=== PATIENT | female | born 1960 | race Native Hawaiian/Other Pacific Islander ===

== ENCOUNTER 2018-03-17 21:59 | Inpatient (IN) | payer BC ==
[2018-03-17 22:19] VITALS: BMI 26.9
--- NOTE | 2018-03-17 22:48 | ED PDOC ---
Arrival/HPI - General Chief Complaint: Dizziness/Lightheaded Time Seen by Provider: 03/17/18 22:15 Historian: Patient - History of Present Illness Narrative History of Present Illness (Text): 03/17/18 22:49 A 57 year old female, with no significant past medical history, presents to the emergency department complaining of dizziness. Patient describes dizziness as a room-spinning sensation, feels like she is "on a boat." Also, patient mentions she currently has an ear infection, which she was prescribed a [id number]-[id number] of Cipro, which she is nearly done with. Patient notes also vomiting a few times earlier today, howeve denies any syncope, palpitations, chest pain, dyspnea on exertion, any other neuro symptoms, or any other complaints at this time. No PMD Past Medical History - Provider Review Nursing Documentation Reviewed: Yes - Infectious Disease Hx of Infectious Diseases: None - Reproductive Menopause: No Family/Social History - Physician Review Nursing Documentation Reviewed: Yes Family/Social History: No Known Family HX Allergies/Home Meds Allergies/Adverse Reactions: Allergies Penicillins Allergy (Verified 03/17/18 22:43) RASH Review of Systems - Physician Review All systems were reviewed & negative as marked: Yes - Review of Systems Cardiovascular: absent: Chest Pain, Palpitations, SHERIFF, Syncope Gastrointestinal: Vomiting (few times today) Neurological: Dizziness (room-spinning sensation). absent: Headache, Focal Weakness, Gait Changes, Speech Changes, Facial Droop, Disequilibrium Physical Exam Vital Signs Reviewed: Yes Vital Signs Temp Pulse Resp BP Pulse Ox 03/17/18 22:31 97.5 F L 64 16 175/77 H 96 03/17/18 22:19 97.5 F L 65 20 208/83 H 99 Temperature: Afebrile Blood Pressure: Hypertensive Pulse: Regular Respiratory Rate: Normal Appearance: Positive for: Well-Appearing, Non-Toxic, Comfortable Pain Distress: None Mental Status: Positive for: Alert and Oriented X 3 - Systems Exam Head: Present: Atraumatic, Normocephalic Pupils: Present: PERRL Extroacular Muscles: Present: EOMI, Other (horizontal nystagmus) Conjunctiva: Present: Normal Ears: Present: NORMAL TM (clear bilaterally) Mouth: Present: Moist Mucous Membranes Neck: Present: Normal Range of Motion Respiratory/Chest: Present: Clear to Auscultation, Good Air Exchange. No: Respiratory Distress, Accessory Muscle Use Cardiovascular: Present: Regular Rate and Rhythm, Normal S1, S2. No: Murmurs Abdomen: No: Tenderness, Distention, Peritoneal Signs Back: Present: Normal Inspection Upper Extremity: Present: Normal Inspection. No: Cyanosis, Edema Lower Extremity: Present: Normal Inspection. No: Edema Neurological: Present: GCS=15, CN II-XII Intact, Speech Normal Skin: Present: Warm, Dry, Normal Color. No: Rashes Psychiatric: Present: Alert, Oriented x 3, Normal Insight, Normal Concentration Medical Decision Making ED Course and Treatment: 03/17/18 22:52 Impression: 57 year old female with dizziness and having vomited a few times earlier today. Plan: - EKG -- Labs -- Anitvert -- Reassess and disposition Progress Notes: 03/17/18 22:52 EKG: Ordered, reviewed, and independently interpreted the EKG. Rate : 58 BPM Rhythm : Sinus Bradycardia Interpretation : Normal access, normal intervals, no ST- or T- wave changes. Comparison : No previous EKG for comparison. 03/18/18 01:15 Patient states she is still feeling dizziness, and now experiences weakness and headache. 03/18/2018 02:[address] IMPRESSION: Normal unenhanced CT scan of the brain. Bilateral gas densities are noted in the infratemporal fossae more on the right. Dictator: Codie Bender MD Patient had continued vertigo, although she reported some improvement with meclizine. Offered admission but she stated that she did not want to stay. However she attempted to get up and walk multiple times, and felt dizzy every time. Eventually she was amenable to admission. PMD is based in [place]. Case discussed with Dr. Iglesias who accepts patient to her service. Requests Dr. Lima for neuro consult. - Lab Interpretations I have reviewed the lab results: Yes - Scribe Statement The provider has reviewed the documentation as recorded by the Donovan Lee Provider Scribe Attestation: All medical record entries made by the Scribe were at my direction and personally dictated by me. I have reviewed the chart and agree that the record accurately reflects my personal performance of the history, physical exam, medical decision making, and the department course for this patient. I have also personally directed, reviewed, and agree with the discharge instructions and disposition. Disposition/Present on Arrival - Present on Arrival Any Indicators Present on Arrival: No History of DVT/PE: No History of Uncontrolled Diabetes: No Urinary Catheter: No History of Decub. Ulcer: No History Surgical Site Infection Following: None - Disposition Have Diagnosis and Disposition been Completed?: Yes Diagnosis: Vertigo Disposition: HOSPITALIZED Disposition Time: 06:00 Patient Plan: Admission Condition: STABLE Forms: [facility] ([facility]irati)
[2018-03-17 22:53] LABS: BASO # 0.03 K/mm3 (0.0-2.0); BASO % 0.2 % (0.0-3.0); GRAN # 12.09 (1.4-6.5); GRAN % 85.5 % (50.0-68.0); HEMOGLOBIN 12.8 g/dL (12.0-16.0); LYMPH # 1.4 (1.2-3.4); LYMPH % 9.8 % (22.0-35.0); MEAN CELL VOLUME 90.8 fl (80.0-105.0); MEAN CORPUSCULAR HEMOGLOBIN 30.2 pg (25.0-35.0); MEAN CORPUSCULAR HGB CONC 33.2 g/dl (31.0-37.0); MEAN PLATELET VOLUME 10.4 fl (7.0-11.0); MONO # 0.6 (0.1-0.6); MONO % 4.5 % (1.0-6.0); RBC 4.24 10^6/uL (3.5-6.1); RED CELL DISTRIBUTION WIDTH 12.3 % (11.5-14.5); WHITE BLOOD COUNT 14.1 10^3/uL (4.5-11.0)
[2018-03-17 23:49] LABS: ALB/GLOB RATIO 1.3 (1.1-1.8); ALBUMIN 4.5 g/dL (3.0-4.8); ALT/SGPT 32 U/L (7-56); AST/SGOT 36 U/L (14-36); BLOOD UREA NITROGEN 15 mg/dL (7-21); CALCIUM 10.1 mg/dL (8.4-10.5); GFR NON-AFRICAN AMERICAN > 60
[2018-03-18 00:29] LABS: TROPONIN I < 0.01 ng/mL
[2018-03-18] MEDS ORDERED: Sodium Chloride 0.9% 1,000 ML IV STA (01:15)
--- NOTE | 2018-03-18 07:50 | CARD ---
APPROVED REPORT Date of service: 03/17/2018 EKG Measurement Heart [id number] <Conclusion> Sinus bradycardia Possible septal infarct, age undetermined Small q in lll
[2018-03-18] MEDS: Pantoprazole 40 mg EC Tab PO SCH (09:44)
--- NOTE | 2018-03-18 14:44 | CT ---
Date of service: 03/18/2018 PROCEDURE: CT HEAD WITHOUT CONTRAST. HISTORY: dizziness COMPARISON: None available. TECHNIQUE: Axial computed tomography images were obtained through the head/brain without intravenous contrast. Radiation dose: Total exam DLP = 838.45 mGy-cm. This CT exam was performed using one or more of the following dose reduction techniques: Automated exposure control, adjustment of the mA and/or kV according to patient size, and/or use of iterative reconstruction technique. FINDINGS: HEMORRHAGE: No intracranial hemorrhage. BRAIN: No mass effect or edema. The dickens-white matter differentiation appears intact. Please note that MRI with diffusion imaging is more sensitive in the detection of acute ischemic event. Focus of pneumocephalus at the brainstem. Subcutaneous emphysema is noted dissecting along the pterygoid musculature, right greater than left. VENTRICLES: No hydrocephalus. CALVARIUM: Unremarkable. PARANASAL SINUSES: Unremarkable as visualized. No significant inflammatory changes. MASTOID AIR CELLS: Unremarkable as visualized. No inflammatory changes. OTHER FINDINGS: None. IMPRESSION: Focus of pneumocephalus at the brainstem. Subcutaneous emphysema is noted dissecting along the pterygoid musculature, right greater than left. Etiology unclear known. Rule out possibility of pneumothorax/pneumomediastinum. Preliminary impression was provided by [employer]. Study marked for PA review and discussed with Rigoberto Veliz on 03/18/18 at 2:38 p.m.
[2018-03-18] MEDS ORDERED: Dexamethasone 4 MG in Sodium Chloride 0.9% 50 ML IV ONE (17:14)
[2018-03-18] MEDS ORDERED: Dexamethasone 4 mg/1 ml ONE (17:48)
--- NOTE | 2018-03-18 18:51 | CON ---
DATE OF CONSULTATION: 03/18/2018 NEUROLOGY CONSULTATION CHIEF COMPLAINT: Dizziness. HISTORY OF PRESENT ILLNESS: This is a 57-year-old woman with no significant past medical history except for hypertension, came with dizziness, spinning sensation of the room, felt like she was on a boat, was nauseous and had 1 episode of vomiting. She recently had a recent ear infection, for which she was prescribed 10 days of Cipro, which she is nearly done with that. Currently, when she looks from the right to left direction, she gets a slight spinning sensation of the room. No focal weakness of the extremities. She had elevated systolic blood pressure when she was admitted. Her CAT scan of the head showed no acute intracranial abnormalities. Questionable air in the brainstem but seems a poor artifact. We will order an MRI of the brain. PAST MEDICAL HISTORY: As above. SOCIAL HISTORY: No illicit drug use, smoking or EtOH abuse. ALLERGIES: PENICILLIN. FAMILY HISTORY: Noncontributory. REVIEW OF SYSTEMS: Fourteen-point review of systems is negative except as per the HPI. MEDICATIONS: Reviewed by nurses's reconciliation sheet. LABORATORY DATA: Sodium is 139, potassium 4.5, chloride 105, carbon dioxide 26, BUN of 15, creatinine 0.7, random glucose of 194. PHYSICAL EXAMINATION: VITAL SIGNS: Temperature of 99.2, pulse rate 69, blood pressure 147/69, respiratory rate of 20, oxygen saturation 95% by room air. GENERAL: The patient is sitting up in bed, in no acute distress. HEENT: Atraumatic, normocephalic. PERRLA. Extraocular muscles intact. NECK: Supple. No JVD, no adenopathy noted. LUNGS: Clear to auscultation. No adventitious sounds. HEART: S1 and S2. Normal rate and rhythm. No murmurs, rubs or gallops. ABDOMEN: Soft, nontender and nondistended. Bowel sounds are present. EXTREMITIES: No clubbing. No cyanosis. Peripheral pulses 2+ felt bilaterally. NEUROLOGIC: The patient is alert and oriented to person, place, month and year. Speech is fluent without any errors. Cranial nerves II through XII are intact. Motor exam: Moves all extremities equally. No pronator drift seen. Sensory exam: Light touch, pinprick, proprioception and vibration are intact. DTRs are 2+ throughout and toes are downgoing bilaterally. Coordination: [id number]-[id number] intact. No dysmetria noted. Gait is deferred for now. IMPRESSION: Dizziness, seems more like a positional vertigo rather central and superimposed and aggravated by elevated systolic blood pressures. At this time, we will recommend, 1. An MRI of the brain to assess for any acute intracranial abnormalities causing dizziness. 2. Aspirin 81 and Lipitor 10 mg for stroke prevention. 3. Meclizine 12.5 mg p.o. b.i.d. for vertigo. 4. Recommend outpatient vestibular therapy. 5. We will give dexamethasone 4 mg IV push to decrease the intensity and severity of dizziness. At this time, she is clinically stable. Thank you for this consult. Tim Lima MD
[2018-03-18 21:52] LABS: URINE BILIRUBIN NEGATIVE (NEGATIVE); URINE BLOOD NEGATIVE (NEGATIVE); URINE GLUCOSE (UA) NEGATIVE (NEGATIVE); URINE LEUKOCYTE ESTERASE NEGATIVE Leu/uL (NEGATIVE); URINE PROTEIN NEGATIVE mg/dL (<30 mg/dL); URINE UROBILINOGEN 0.2 E.U./dL (<1 E.U./dL)
[2018-03-18 21:58] LABS: URINE APPEARANCE CLEAR (CLEAR); URINE COLOR YELLOW (YELLOW)
--- NOTE | 2018-03-19 00:37 | HP ---
DATE OF EXAM: 03/18/2018 CHIEF COMPLAINT: Dizziness. HISTORY OF PRESENT ILLNESS: Ms. Nayely Allen is a 57-year-old female with past medical history came to the emergency department complaining of dizziness. The patient describe dizziness as room spinning sensation, feels like she is on the boat. Also, the patient mentions that she currently has an ear infection, which she was prescribed 10-day course of ciprofloxacin, which she is nearly done with that. The patient noticed she is vomiting few times earlier on the day of admission; however, denies any syncopal attack or palpitation. No chest pain. No dyspnea. No hematuria or hematochezia. No swelling of the legs. No fever. No chills. No other neurological symptoms as per patient. I saw the patient with the patient's nurse. Actually, the patient wants to go home, but I explained to her now she should be seen by the ENT, neurologist, and carton filler. PAST MEDICAL HISTORY: Nonsignificant. FAMILY HISTORY: Father and mother, noncontributory. ALLERGIES: THE PATIENT IS ALLERGIC WITH PENICILLIN. REVIEW OF SYSTEMS: The patient was seen and examined at the bedside in her room. The patient's nurse was standing with me. No chest pain. No palpitation. No syncopal attack. Has few episodes of vomiting and complaining actually dizziness. No headache or focal deficits. No gait changes or speech changes , PHYSICAL EXAMINATION: VITAL SIGNS: Temperature 97.5, pulse 65, respiratory rate 20, blood pressure 175/77, then 208/83, and pulse oximetry 96. HEENT: Head; normocephalic and atraumatic. Eyes; PERRLA. Extraocular muscles are intact. Conjunctivae clear. Nose patent. Mucous membranes moist. NECK: Supple. No carotid bruit, JVD or thyromegaly. CHEST: Bilaterally symmetrical. HEART: S1 and S2 positive. LUNGS: Clear to auscultation. ABDOMEN: Soft. Bowel sounds are present. No organomegaly. EXTREMITIES: No edema. No cyanosis. NEUROLOGIC: The patient is awake and alert. Moving all four extremities. No focal deficit on physical examination. LABORATORY DATA: White blood cells 14.1, hemoglobin 12.8, hematocrit 38.5, and platelets 205,000. Sodium 139, potassium 4.5, BUN 15, creatinine 0.7, and glucose 194. Liver function test within normal limits. Troponin first set was negative. ASSESSMENT AND PLAN: Ms. Nayely Allen is a 57-year-old lady with leukocytosis, hyperglycemia, came with dizziness. CAT scan of the head done showed focus of pneumocephalus at the brainstem, subcutaneous emphysema is noted dissecting along with pterygoid musculature right greater than left, etiology is unclear, rule out possibility of pneumothorax or pneumomediastinum. The patient is sent for stat chest x rays. Pulmonary consult called. Discussion done with nursing staff. Did ear, nose, and throat consult. Awaiting for input from the neurologist and carton filler. Gastrointestinal and deep venous thrombosis prophylaxes. Repeat labs. We will followup. Yamini Lopes MD MTDArgelia
--- NOTE | 2018-03-19 02:07 | CON ---
DATE OF CONSULTATION: 03/18/2018 REASON FOR CONSULTATION: Vertigo. HISTORY OF PRESENT ILLNESS: The patient is a 57-year-old [place]onegas[place] female who has been experiencing ear infection for the past few days and came in because of spinning feeling. The patient denies any nausea or vomiting. She does report left earache. The patient stated that she underwent recent stress test with Dr. Davis at [place] and she was told it was normal. The patient does not feel well, experiencing palpitations with her vertigo spells. SOCIAL HISTORY: Nonsmoker and nondrinker. MEDICATIONS: Antivert 12.5 mg b.i.d., aspirin 81 mg once a day, Lipitor 10 mg once a day, Protonix 40 mg p.o. once a day, Zestril 10 mg once a day. REVIEW OF SYSTEMS: No syncope or fall. No nausea or vomiting. No fever or chills. No retrosternal chest pain. PHYSICAL EXAMINATION: GENERAL: The patient is a middle-aged female who does not appear to be in acute distress. VITAL SIGNS: Blood pressure 147/69, heart rate 69, temperature 99.2, respirations 20. HEENT: Normocephalic. CHEST: Clear. HEART: S1, S2 regular. ABDOMEN: Soft. EXTREMITIES: No edema. LABORATORY DATA: SMA-7: Sodium 139, potassium 4.5, chloride 105, CO2 of 26, glucose 194, BUN 15, creatinine 0.7. One set of troponin is negative. CBC: WBC of 14.1, hemoglobin and hematocrit of 12.8 and 38.5, platelet count 205,000. Head CT scan without contrast: Focus of pneumocephalus at the brainstem. Subcutaneous emphysema is noted dissecting along the pterygoid musculature, right greater than left, etiology unclear. Rule out possibility of pneumothorax and pneumomediastinum. EKG revealed sinus bradycardia at the rate of 58, possible left atrial enlargement. ASSESSMENT: 1. Vertigo. 2. History of hypertension. 3. Focus of pneumatocephalus at the brainstem with subcutaneous emphysema noted dissecting along the pterygoid musculature, rule out pneumothorax or pneumomediastinum. 4. Mild sinus bradycardia. RECOMMENDATIONS: Continue current aspirin 81 mg once a day, Lipitor 10 mg once a day, Zestril 10 mg once a day. Obtain an echocardiogram and chest as well as a neck x-ray. Malcolm Serrano MD
[2018-03-19] MEDS: Pantoprazole 40 mg EC Tab PO SCH (05:39)
[2018-03-19 06:50] LABS: HEMOGLOBIN 12.8 g/dL (12.0-16.0); MEAN CELL VOLUME 89.4 fl (80.0-105.0); MEAN CORPUSCULAR HEMOGLOBIN 29.4 pg (25.0-35.0); MEAN CORPUSCULAR HGB CONC 32.9 g/dl (31.0-37.0); RBC 4.35 10^6/uL (3.5-6.1); RED CELL DISTRIBUTION WIDTH 12.1 % (11.5-14.5); WHITE BLOOD COUNT 8.6 10^3/uL (4.5-11.0)
[2018-03-19 06:59] LABS: BLOOD UREA NITROGEN 15 mg/dL (7-21); CALCIUM 10.1 mg/dL (8.4-10.5); GFR NON-AFRICAN AMERICAN > 60; HDL CHOLESTEROL 67 mg/dL (29-60)
[2018-03-19 07:09] LABS: TROPONIN I < 0.01 ng/mL
[2018-03-19 07:10] LABS: LDL CHOLESTEROL 117 mg/dL (0-129)
[2018-03-19 07:37] LABS: IRON 49 ug/dL (45-180)
[2018-03-19 07:46] LABS: % IRON SATURATION 13 % (20-55); TOTAL IRON BINDING CAPACITY 367 ug/dL (265-497)
--- NOTE | 2018-03-19 12:02 | CP.PCM.CON ---
History of Present Illness - History of Present Illness History of Present Illness: 57 y/o female with approximate 2 week hx of room spinning dizziness. Pt was treated as out patient with cipro po and drops. Pt denies feeling any pain at the moment. She has warmth. Denies hearing loss. Hx of room spinning dizzines s. pt had Ct performed and note of punctate air brainstem and pterygoid musculature. Review of Systems - Constitutional Constitutional: As Per HPI - EENT Eyes: As Per HPI Ears: As Per HPI Nose/Mouth/Throat: As Per HPI - Breasts Breasts: As Per HPI - Cardiovascular Cardiovascular: As Per HPI - Respiratory Respiratory: As Per HPI - Gastrointestinal Gastrointestinal: As Per HPI - Genitourinary Genitourinary: As Per HPI - Reproductive: Female Reproductive:Female: As Per HPI - Menstruation Menstruation: As Per HPI - Musculoskeletal Musculoskeletal: As Per HPI - Integumentary Integumentary: As Per HPI - Neurological Neurological: As Per HPI - Psychiatric Psychiatric: As Per HPI - Endocrine Endocrine: As Per HPI - Hematologic/Lymphatic Hematologic: As Per HPI Past Patient History - Infectious Disease Hx of Infectious Diseases: None - Past Social History Smoking Status: Never Smoked - CARDIAC Hx Cardiac Disorders: Yes Hx Hypercholesterolemia: Yes Hx Hypertension: Yes - MUSCULOSKELETAL/RHEUMATOLOGICAL Hx Falls: No - GASTROINTESTINAL Hx Gastroesophageal Reflux: Yes - PSYCHIATRIC Hx Substance Use: No - SURGICAL HISTORY Hx Tubal Ligation: Yes - ANESTHESIA Hx Anesthesia: Yes Hx Anesthesia Reactions: No Meds Allergies/Adverse Reactions: Allergies Allergy/AdvReac Type Severity Reaction Status Date / Time Penicillins Allergy RASH Verified 03/17/18 22:43 - Medications Medications: Current Medications Aspirin (Aspirin Chewable) 81 mg PO DAILY [facility] Last Admin: 03/19/18 09:41 Dose: 81 mg Atorvastatin Calcium (Lipitor) 10 mg PO DIN [facility] Last Admin: 03/18/18 17:51 Dose: 10 mg Lisinopril (Zestril) 20 mg PO DAILY [facility] Meclizine HCl (Antivert) 12.5 mg PO BID [facility] Last Admin: 03/19/18 09:41 Dose: 12.5 mg Pantoprazole Sodium (Protonix Ec Tab) 40 mg PO 0600 [facility] Last Admin: 03/19/18 05:39 Dose: 40 mg Physical Exam - Constitutional Appears: Well, Non-toxic - Head Exam Head Exam: ATRAUMATIC, NORMAL INSPECTION - Eye Exam Eye Exam: EOMI Pupil Exam: NORMAL ACCOMODATION - ENT Exam ENT Exam: Mucous Membranes Moist Additional comments: Ears: canals wnl, TM's wnl Nose wnl no rhinitis Throat wnl no injection Neck supple no adenopathy Neuro: hallpike negative - Neck Exam Additional comments: minimal crepitus left cheek barely palpable - Respiratory Exam Respiratory Exam: NORMAL BREATHING PATTERN Results - Vital Signs Recent Vital Signs: Last Vital Signs Temp 98.2 F 03/19/18 06:00 Pulse 87 03/19/18 10:11 Resp 20 03/19/18 06:00 BP 172/84 H 03/19/18 10:11 Pulse Ox 96 03/19/18 06:00 - Labs Result Diagrams: 03/19/18 06:00 03/19/18 06:00 Labs: Laboratory Results - last 24 hr 03/18/18 03/19/18 03/19/18 21:45 06:00 06:00 WBC RBC Hgb Hct MCV MCH MCHC RDW Plt Count MPV Sodium 141 Potassium 3.8 Chloride 109 H Carbon Dioxide 25 Anion Gap 11 BUN 15 Creatinine 0.7 Est GFR ( Amer) > 60 Est GFR (Non-Af Amer) > 60 Random Glucose 137 H Hemoglobin A1c Calcium 10.1 Iron 49 TIBC 367 % Saturation 13 L Lactate Dehydrogenase 464 Total Creatine Kinase 76 Troponin I < 0.01 Triglycerides 181 H Cholesterol 196 LDL Cholesterol Direct 117 HDL Cholesterol 67 H TSH 3rd Generation Urine Color Yellow Urine Appearance Clear Urine pH 6.0 Ur Specific [place] 1.015 Urine Protein Negative Urine Glucose (UA) Negative Urine Ketones Negative Urine Blood Negative Urine Nitrate Negative Urine Bilirubin Negative Urine Urobilinogen 0.2 Ur Leukocyte Esterase Negative 03/19/18 03/19/18 03/19/18 06:00 06:00 06:00 WBC 8.6 D RBC 4.35 Hgb 12.8 Hct 38.9 MCV 89.4 MCH 29.4 MCHC 32.9 RDW 12.1 Plt Count 220 MPV 11.0 Sodium Potassium Chloride Carbon Dioxide Anion Gap BUN Creatinine Est GFR ( Amer) Est GFR (Non-Af Amer) Random Glucose Hemoglobin A1c 6.4 Calcium Iron TIBC % Saturation Lactate Dehydrogenase Total Creatine Kinase Troponin I Triglycerides Cholesterol LDL Cholesterol Direct HDL Cholesterol TSH 3rd Generation 0.30 L Urine Color Urine Appearance Urine pH Ur Specific [place] Urine Protein Urine Glucose (UA) Urine Ketones Urine Blood Urine Nitrate Urine Bilirubin Urine Urobilinogen Ur Leukocyte Esterase Assessment & Plan (1) Vertigo Status: Acute (2) Otitis media of left ear treated with antibiotics in the past 60 days Status: Acute (3) Pneumocephalus Status: Acute (4) Subcutaneous air Status: Acute (5) Subcutaneous crepitus Status: Acute - Assessment and Plan (Free Text) Plan: complete imaging studies. Begin Levaquin. monitor. Souce of Crepitus unclear at this time. - Date & Time Date: 03/19/18 Time: 12:02
--- NOTE | 2018-03-19 12:33 | RAD ---
HISTORY: pneumothorax COMPARISON: None available. TECHNIQUE: Chest PA and lateral FINDINGS: Examination limited by habitus. LUNGS: Biapical pleural thickening. Mild bibasilar atelectasis. No focal consolidation. Please note that chest x-ray has limited sensitivity for the detection of pulmonary masses. PLEURA: Blunting of the bilateral costophrenic angles may reflect mild pleural thickening or effusion. No definite pneumothorax . CARDIOVASCULAR: Heart size appears top normal. Ectatic aorta. Atherosclerotic calcification present. OSSEOUS STRUCTURES: Degenerative changes of the spine. VISUALIZED UPPER ABDOMEN: Unremarkable. OTHER FINDINGS: None. IMPRESSION: Biapical pleural thickening. Mild bibasilar atelectasis. Blunting of the bilateral costophrenic angles may reflect mild pleural thickening or effusion.
[2018-03-19] MEDS: levoFLOXacin 500 mg in D5W 500 MG/100 ML BAG IVPB SCH (13:30)
--- NOTE | 2018-03-19 13:50 | CT ---
Date of service: 03/19/2018 PROCEDURE: CT HEAD WITHOUT CONTRAST. HISTORY: Subcutaneous emphysema COMPARISON: Comparison made with TECHNIQUE: Axial computed tomography images were obtained through the head/brain without intravenous contrast. Radiation dose: Total exam DLP = 884.49 mGy-cm. This CT exam was performed using one or more of the following dose reduction techniques: Automated exposure control, adjustment of the mA and/or kV according to patient size, and/or use of iterative reconstruction technique. FINDINGS: HEMORRHAGE: No acute parenchymal, subarachnoid or extra-axial hemorrhage. BRAIN: No mass effect or edema. No atrophy or chronic microvascular ischemic changes. Previously noted few bubbles of air that were present in the right cavernous sinus and the dorsal to the clivus no longer seen. VENTRICLES: No obstructive hydrocephalus. CALVARIUM: Bones of the skull base and remaining calvarium appear intact. PARANASAL SINUSES: Unremarkable as visualized. No significant inflammatory changes. MASTOID AIR CELLS: Unremarkable as visualized. No inflammatory changes. OTHER FINDINGS: Previously noted on subcutaneous air that was seen in the soft tissues of the base of the skull upper neck region are resolved. IMPRESSION: No acute intracranial hemorrhage. Resolution previously noted subcutaneous air in the soft tissues base of the skull as well as air that was seen in the region the right cavernous sinus and dorsal to the clivus.
--- NOTE | 2018-03-19 14:00 | MRI ---
Date of service: 03/19/2018 PROCEDURE: MRI BRAIN AND IAC'S WITHOUT CONTRAST HISTORY: vertigo COMPARISON: Comparison made with prior concurrent CT scan of the brain as well as prior CT scan brain 03/18/2018. TECHNIQUE: Multiplanar, multisequence MR images of the brain were obtained without intravenous contrast enhancement. FINDINGS: HEMORRHAGE: No acute parenchymal, subarachnoid nor extra-axial hemorrhage. No evidence of hemosiderin deposition identified on gradient echo weighted sequence. DWI: No acute or early subacute infarction seen on diffusion imaging.. BRAIN PARENCHYMA: Multiple tiny chronic appearing lacunar type infarcts seen scattered about the periventricular and deep white matter both cerebral hemispheres.. Questionable tiny chronic right cerebellar lacunar type infarct. Ventricular and sulcal size are within range of normal for this patient's stated age. Partially empty sella. The visualized internal auditory canals and CP angle cisterns appear grossly unremarkable. VENTRICLES: No obstructive hydrocephalus. CRANIUM: No gross calvarial abnormalities. ORBITS: Are orbits and contents unremarkable. PARANASAL SINUSES/MASTOIDS: Clear VASCULAR SYSTEM: Visualized major vascular flow voids at skull base patent. OTHER FINDINGS: None. IMPRESSION: No evidence of acute intracranial hemorrhage or infarct. Minor chronic periventricular and deep white matter ischemic changes. Questionable tiny chronic lacunar-type infarct right cerebellum. .
--- NOTE | 2018-03-19 14:19 | CT ---
Date of service: 03/19/2018 CT chest without IV contrast Indication: Abnormal finding on prior imaging study Technique: Contiguous axial images were obtained through the chest without intravenous contrast enhancement. Sagittal and coronal reconstructions were generated and reviewed. This CT exam was performed using 1 or more of the following dose reduction techniques: Automated exposure control, adjustment of the MAA and/or kV according to patient size, and/or use of iterative reconstruction technique. Radiation dose (DLP): 470.51 MGy-cm. Comparison: Chest x-ray performed 03/18/18 Findings: Visualized portions of the inferior thyroid gland demonstrates 5 mm left lower pole nodule. The mediastinal and hilar vascular structures appear within normal limits. The heart appears within normal limits of size. No focal consolidation. No pleural effusion. No pneumothorax. 9 x 12 mm right upper lobe calcified granuloma. Limited visualization of the noncontrast upper abdomen: Numerous splenic and hepatic calcifications consistent with granulomas. Degenerative changes of the spine. Impression: No focal consolidation. No pleural effusion. No pneumothorax. 9 x 12 mm right upper lobe calcified granuloma. 5 mm left lower pole thyroid nodule. Evidence of prior granulomatous infection.
--- NOTE | 2018-03-19 14:28 | CT ---
Date of service: 03/19/2018 PROCEDURE: CT NECK WITHOUT CONTRAST HISTORY: N COMPARISON: Comparison made with CT scan brain 1122017. TECHNIQUE: CT of the neck without intravenous contrast. Coronal and sagittal reformats generated. Radiation dose: Total exam DLP = 0.0 mGy-cm. This CT exam was performed using one or more of the following dose reduction techniques: Automated exposure control, adjustment of the mA and/or kV according to patient size, and/or use of iterative reconstruction technique. FINDINGS: NASOPHARYNX: Unremarkable. SUPRAHYOID NECK: The palatine tonsils are mildly enlarged and contain multiple small tonsilliths. The palatine tonsils encroach medially and reduce the edwardo pharyngeal airway. INFRAHYOID NECK: The true vocal cords are apposed to is one another likely due to Valsalva and/or phonation during acquisition image. Minimal asymmetry of the pyriform sinuses. This is of lacunar unremarkable. Free margin of the epiglottis is normal. MASS: No large cervical masses or collections. GLANDS: Parotid and submandibular glands unremarkable. . The thyroid gland exhibits normal size however there is a tiny approximately is is 5.4 mm low-attenuation nodule left lobe thyroid gland for which thyroid ultrasound follow-up recommended. LYMPH NODES: There are multiple tiny nonspecific bilateral cervical lymph nodes none of which appear pathologically enlarged.. CERVICAL SPINE: No acute compression fractures no retropulsed fragments. Vertebral bodies exhibit normal stature. There reversal of the normal cervical lordosis which could be secondary to patient positioning gantry however underlying element of muscle spasm may contribute. Multilevel degenerative spondylosis. Changes include varying degrees of disc space narrowing, mild endplate eburnation with small anterior and tiny posterior osteophyte formation. Changes are most pronounced C5-C6 and C4-C5 levels. OTHER FINDINGS: Previously noted subcutaneous emphysema within the soft tissues of the skull base more so on the right side surrounding the pterygoid musculature and less so on the left side resolved. Source of air on prior CT scan uncertain. Made of Note made of is calcified atherosclerotic plaque at the level of the left carotid bifurcation with slight extension into the proximal left internal carotid artery The there appears to be some minimal biapical pleural thickening right greater than left. Please refer to concurrent CT scan of the chest for additional details. IMPRESSION: No acute cervical pathology. Enlarged palatine tonsils containing multiple tonsilliths. The palatine tonsils encroach medially reducing the edwardo pharyngeal airway. Small low-attenuation nodule left lobe thyroid gland for which thyroid ultrasound follow-up recommended.
--- NOTE | 2018-03-19 14:34 | PN ---
DATE: 03/19/2018 SUBJECTIVE: The patient was seen and examined on the bedside. These notes are for 03/19/2018. The patient was seen on 03/19/2018. Progress note is for 03/19/2018. Looking comfortable. Still having feeling spinning in the room and dizziness, feeling warmth. No fever. No chills. No hematuria. No hematochezia. Seen by the ENT, Dr. Alvarado. Discussion done with Dr. Alvarado. CT and x-rays reviewed. Went for MRI, but results are pending. The patient was taking ciprofloxacin as outpatient. Discussion done with Dr. Alvarado and started on Levaquin. PHYSICAL EXAMINATION: VITAL SIGNS: Temperature 98.2, pulse 87, respiratory rate 20, blood pressure 172/84. HEENT: Head normocephalic, atraumatic. Eyes PERRLA. Extraocular muscles intact. Conjunctivae clear. Nose patent. Mucous membrane moist. NECK: Supple. No carotid bruit. No JVD or thyromegaly. CHEST: Bilaterally symmetrical. HEART: S1 and S2 positive. LUNGS: Clear to auscultation. ABDOMEN: Soft. Bowel sounds positive. No organomegaly. EXTREMITIES: No edema. No cyanosis. NEUROLOGICAL: The patient is awake and alert. Moving all 4 extremities. No focal deficits. MEDICATIONS: Antivert, aspirin, Levaquin, Lipitor, Protonix, Zestril. LABORATORY DATA: White blood cells 8.6, hemoglobin 12.8, hematocrit 38.9, platelets 220. Sodium 141, potassium 3.8, BUN 15, creatinine 0.7, glucose 137, iron saturation 13. ASSESSMENT AND PLAN: Ms. Nayely Allen, 57-year-old lady with history of leukocytosis, improved with antibiotics; hyperchloremia; hyperglycemia; iron deficiency; hypertriglyceridemia; rule out hyperthyroidism. Came with spinning in the room and dizziness, was given ciprofloxacin for left ear pain. Now, seen by Dr. Alvarado. According to him, the patient has vertigo. Otitis media of left ear, treated with antibiotics, Cipro, not completing the course. Pneumocephalus, subcutaneous air, subcutaneous crepitus. The patient was started on Levaquin, monitoring. Source of crepitus is unclear at this time. Discussion done with Dr. Alvarado, ENT. MRI of the brain done, results are pending. CAT scan of the head and neck and chest done, results are pending. Seen by Dr. Serrano, spragger. Soft tissue neck x-ray done, results are pending. History of hypertension, not very well controlled. Mild sinus bradycardia. Focus of a pneumatocephalus at the brainstem with subcutaneous emphysema noted , rule out pneumothorax or pneumomediastinum. Chest x-ray done reviewed by me. Seen by Dr. Tim Lima. Senior Construction Manager is on the case also. Meanwhile, continue antibiotic. Repeat labs. We will follow up. Yamini Lopes MD MTDD
--- NOTE | 2018-03-19 15:43 | PN ---
DATE: 03/19/2018 FOLLOWUP SUBJECTIVE: The patient's vertigo improved. No nausea or vomiting and no chest pain. The patient denies palpitation. PHYSICAL EXAMINATION: VITAL SIGNS: Blood pressure 172/84, heart rate 87, temperature 98.2, respirations 20. HEENT: Normocephalic. CHEST: Clear. HEART: S1 and S2 regular. EXTREMITIES: No edema. LABORATORY DATA: Today's SMA-7 is within normal limits except for glucose of 137 and chloride 109. Today's CBC is entirely within normal limit. Brain MRI without contrast: No evidence of acute intracranial hemorrhage or infarct. Minor chronic periventricular and deep white matter ischemic changes. Questionable tiny chronic lacunar infarct, right cerebellum. Chest CT scan: No focal consolidation or pleural effusion, 9 x 12 mm right upper lobe calcified granuloma, 5-mm left thyroid nodule. Chest x-ray official report: Biapical pleural thickening, mild bibasilar atelectasis, blunting of the bilateral costophrenic angles. ASSESSMENT: 1. Vertigo. 2. Hypertension. 3. Mild sinus bradycardia upon presentation. RECOMMENDATIONS: Continue current Antivert 12.5 mg twice a day, aspirin 81 mg once a day, Lipitor 10 mg once a day and Zestril 20 mg once a day. Followup soft tissue neck CT scan. The patient is scheduled to undergo echocardiogram study tomorrow. There is no evidence of significant bradyarrhythmia that explains the patient's current symptoms. Malcolm Serrano MD
--- NOTE | 2018-03-19 16:34 | RAD ---
Date of service: 03/18/2018 HISTORY: Subcutaneous emphysema base of skull/upper neck COMPARISON: Correlation made with concurrent CT scan neck FINDINGS: Note that the inferior margin of the C6 as well as the C6-C7 disc space and C7 as well as T1 segments not visualized on this exam. No acute compression fractures nor retropulsed fragments within limitations of the study.. Vertebral bodies exhibit normal stature. There straightening of the normal cervical lordosis which could be secondary to patient positioning however vertebral bodies otherwise exhibit normal alignment... There calcification changes of the ligamentum nuchae at the lower cervical region Multilevel degenerative spondylosis. No evidence of gross subcutaneous emphysema. Prevertebral soft tissues grossly unremarkable IMPRESSION: No evidence of subcutaneous air. Multilevel degenerative spondylosis
--- NOTE | 2018-03-19 22:40 | CON ---
DATE OF CONSULTATION: 03/19/2018 REFERRING PHYSICIAN: Yamini Lopes MD REASON FOR CONSULTATION: Admitted with ear discomfort, dizzy spell, recently treated with antibiotics, found to have a subcutaneous emphysema, rule out pneumothorax. 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 She was seen by Neurology, also being seen by Dr. Alvarado from ENT. Admits to have loud snoring, daytime sleepy and tired. Still feels left ear is heavy. Denies any instrumentation of the ear. Also denies any dental workup. Denies any significant cough or sputum production. Denies lifting any heavy weight. While in the ER, had x-rays done, which showed subcutaneous emphysema. The CT of the head was done in ER, which also suggested focus pneumocephalus at the brainstem and subcutaneous emphysema is noted dissecting along the pterygoid musculature, right greater than left, presently sitting up, no acute distress. PAST MEDICAL HISTORY: No cardiopulmonary disease reported. FAMILY HISTORY: No significant cardiopulmonary disease reported. SOCIAL HISTORY: Denies any smoking or alcohol use. MEDICATIONS: She is on Antivert 12.5 mg twice a day, aspirin 81 mg daily, Levaquin 500 mg daily, Lipitor 10 mg daily, Protonix 40 mg daily, Zestril 20 mg daily. ALLERGIES: PENICILLIN. REVIEW OF SYSTEMS: No headache. Still has some feeling of heavy ear and dizzy spell. No neck pain. No shortness of breath. No chest pain. No nausea, vomiting, diarrhea, leg pain or swelling. Admits to have snoring, daytime sleepy and tired. PHYSICAL EXAMINATION: GENERAL: No acute distress. VITAL SIGNS: Temperature is 98, heart rate is 87, respiratory rate is 20, blood pressure 172/84, pulse ox 96% room air. HEENT: Moist mucous membranes. Crowded airway. Mallampati score is 4. At mandibular area, there is some palpable crepitus of air. LUNGS: Have a fair airflow with few rhonchi. HEART: S1 and S2. ABDOMEN: Soft, nontender, no organomegaly. EXTREMITIES: No edema. NEUROLOGIC: Awake, alert. Follows simple commands. LABORATORY DATA: Yesterday WBC was 14, today is 8.6; hemoglobin 12.8; hematocrit 38.9; platelets 220. Sodium 141, potassium 3.8, chloride 109, bicarbonate 25, BUN 15, creatinine 0.7, glucose 137, hemoglobin A1c 6.4. Calcium 10.1. Iron is 49. AST 36, ALT 32. LDH 464. Troponin less than 0.01. Cholesterol is 196. TSH is 0.30. Folate level is 6. Vitamin B12 is 621. Ended up getting MRI of the brain today, shows no evidence of acute intracranial hemorrhage or infarct, minor chronic periventricular and deep white matter ischemic changes, questionable tiny chronic lacuna-type infarct right cerebellum. CT of the neck was done, which shows previously noted subcutaneous emphysema in the left soft tissue of the skull base, more so on the right side surrounding the pterygoid musculature and less so on the left side, resolved. There is also some calcified atherosclerotic plaque at the level of the left carotid bifurcation. There is some minimal bi-apical pleural thickening, right greater than the left. Small low-attenuation nodule left lower thyroid gland. CAT scan of the chest was also done, which shows calcified granuloma. IMPRESSION AND PLAN: Resolving ear infection, pneumocephalus, subcutaneous emphysema, may have sleep apnea syndrome, sign of old granulomatous disease. Case discussed with Dr. Alvarado. Presently, there is no pathology. Do not exactly know the source of ear, but resolved. We will suggest close followup before the symptom arises. May need more diagnostic testing. We will suggest outpatient attended sleep study to assure there is no sleep apnea syndrome. Incidental finding is a new onset of hypertension, which should be treated. Thank you and we will follow with you. Eduardo Lilly MD
[2018-03-20] MEDS: Pantoprazole 40 mg EC Tab PO SCH (05:21)
[2018-03-20 08:49] VITALS: BP 151/82
[2018-03-20] MEDS: levoFLOXacin 500 mg in D5W 500 MG/100 ML BAG IVPB SCH (09:54)
--- NOTE | 2018-03-20 15:06 | CP.PCM.PN ---
Subjective - Date & Time of Evaluation Date of Evaluation: 03/20/18 Time of Evaluation: 15:30 - Subjective Subjective: Patient: SHABNAM RANGEL Unit: [id number] : 1960 Loc: [facility] Room/Bed : [facility] Age/Sex: 57 / F ADM Status: ADM IN ADM Date: DIS Date: 03/20/2018 NEUROLOGY FOLLOWUP CHIEF COMPLAINT: Dizziness. SUBJECTIVE: MRI of the brain showed no acute abnormalities. She is no longer dizzy, PAST MEDICAL HISTORY: As above. SOCIAL HISTORY: No illicit drug use, smoking or EtOH abuse. ALLERGIES: PENICILLIN. FAMILY HISTORY: Noncontributory. REVIEW OF SYSTEMS: Fourteen-point review of systems is negative except as per the HPI. MEDICATIONS: Reviewed by nurses's reconciliation sheet. LABORATORY DATA: Reviewed via chart PHYSICAL EXAMINATION: VITAL SIGNS: Reviewed via chart GENERAL: The patient is sitting up in bed, in no acute distress. HEENT: Atraumatic, normocephalic. PERRLA. Extraocular muscles intact. NECK: Supple. No JVD, no adenopathy noted. LUNGS: Clear to auscultation. No adventitious sounds. HEART: S1 and S2. Normal rate and rhythm. No murmurs, rubs or gallops. ABDOMEN: Soft, nontender and nondistended. Bowel sounds are present. EXTREMITIES: No clubbing. No cyanosis. Peripheral pulses 2+ felt bilaterally. NEUROLOGIC: The patient is alert and oriented to person, place, month and year. Speech is fluent without any errors. Cranial nerves II through XII are intact. Motor exam: Moves all extremities equally. No pronator drift seen. Sensory exam: Light touch, pinprick, proprioception and vibration are intact. DTRs are 2+ throughout and toes are downgoing bilaterally. Coordination: [id number] intact. No dysmetria noted. Gait is deferred for now. IMPRESSION: Dizziness, seems more like a positional vertigo rather central and superimposed and aggravated by elevated systolic blood pressures. At this time, we will recommend, 1. Aspirin 81 and Lipitor 10 mg for stroke prevention. 2. Meclizine 12.5 mg p.o. b.i.d. for vertigo. 4. Recommend outpatient vestibular therapy. At this time, she is clinically stable. Thank you Tim Lima MD Objective - Vital Signs/Intake and Output Vital Signs (last 24 hours): Temp Pulse Resp BP Pulse Ox 97.8 F 70 20 151/82 H 98 03/20/18 08:49 03/20/18 09:54 03/20/18 08:49 03/20/18 09:54 03/20/18 08:49 Intake and Output: 03/20/18 03/20/18 06:59 18:59 Intake Total 620 Balance 620 - Medications Medications: Current Medications Aspirin (Aspirin Chewable) 81 mg PO DAILY [facility] Last Admin: 03/20/18 09:54 Dose: 81 mg Atorvastatin Calcium (Lipitor) 10 mg PO DIN [facility] Last Admin: 03/19/18 17:04 Dose: 10 mg Levofloxacin/Dextrose (Levaquin 500mg) 500 mg in 100 mls @ 100 mls/hr IVPB DAILY [facility]; Protocol Stop: 03/26/18 12:16 Last Admin: 03/20/18 09:54 Dose: 100 mls/hr Lisinopril (Zestril) 20 mg PO DAILY [facility] Last Admin: 03/20/18 09:54 Dose: 20 mg Meclizine HCl (Antivert) 12.5 mg PO BID [facility] Last Admin: 03/20/18 09:54 Dose: 12.5 mg Pantoprazole Sodium (Protonix Ec Tab) 40 mg PO 0600 [facility] Last Admin: 03/20/18 05:21 Dose: 40 mg - Labs Labs: 03/19/18 06:00 03/19/18 06:00
--- NOTE | 2018-03-20 17:08 | CP.PCM.CON ---
History of Present Illness - History of Present Illness History of Present Illness: 57 year old female with no significant past medical history was brought in to [facility] because of dizziness of about 2 weeks. She was recently diagnosed with otitis media of the left ear and was given Ciprofloxacin pills and otic drops by her PMD and she was doing well with it. However, her dizziness, which started prior to her starting Cipro had persisted. She states her ear pain has significantly improved, no nausea or vomiting, she has no more dizziness currently, no headache, no SOB, no cough or colds, no diarrhea, no dysuria, no a bdominal pain. CT head was done on this admission which initially showed possible small pneumocephalus at the base of the brain - repeat CT head did not show it and MRI brain did not show it either. She was started on Levaquin and she developed pain along the IV infusion site and spread to the veins. Infectious Diseases consult is requested to further evaluate and manage. Review of Systems - Review of Systems All systems: reviewed and no additional remarkable complaints except (as per HPI) Past Patient History - Infectious Disease Hx of Infectious Diseases: None - Past Social History Smoking Status: Never Smoked - CARDIAC Hx Cardiac Disorders: Yes Hx Hypercholesterolemia: Yes Hx Hypertension: Yes - MUSCULOSKELETAL/RHEUMATOLOGICAL Hx Falls: No - GASTROINTESTINAL Hx Gastroesophageal Reflux: Yes - PSYCHIATRIC Hx Substance Use: No - SURGICAL HISTORY Hx Tubal Ligation: Yes - ANESTHESIA Hx Anesthesia: Yes Hx Anesthesia Reactions: No Meds Allergies/Adverse Reactions: Allergies Allergy/AdvReac Type Severity Reaction Status Date / Time Penicillins Allergy RASH Verified 03/17/18 22:43 - Medications Medications: Current Medications Aspirin (Aspirin Chewable) 81 mg PO DAILY [facility] Last Admin: 03/20/18 09:54 Dose: 81 mg Atorvastatin Calcium (Lipitor) 10 mg PO DIN [facility] Last Admin: 03/19/18 17:04 Dose: 10 mg Ciprofloxacin (Cipro) 500 mg PO Q12 [facility]; Protocol Stop: 03/25/18 22:01 Levofloxacin/Dextrose (Levaquin 500mg) 500 mg in 100 mls @ 100 mls/hr IVPB DAILY [facility]; Protocol Stop: 03/26/18 12:16 Last Admin: 03/20/18 09:54 Dose: 100 mls/hr Lisinopril (Zestril) 20 mg PO DAILY [facility] Last Admin: 03/20/18 09:54 Dose: 20 mg Meclizine HCl (Antivert) 12.5 mg PO BID [facility] Last Admin: 03/20/18 09:54 Dose: 12.5 mg Pantoprazole Sodium (Protonix Ec Tab) 40 mg PO 0600 [facility] Last Admin: 03/20/18 05:21 Dose: 40 mg Physical Exam - Constitutional Appears: Non-toxic, No Acute Distress - Head Exam Head Exam: NORMAL INSPECTION - Neck Exam Neck exam: Negative for: Meningismus - Respiratory Exam Respiratory Exam: Decreased Breath Sounds - Cardiovascular Exam Cardiovascular Exam: +S1, +S2 - GI/Abdominal Exam GI & Abdominal Exam: Soft. absent: Tenderness Results - Vital Signs Recent Vital Signs: Last Vital Signs Temp 97.8 F 03/20/18 08:49 Pulse 70 03/20/18 09:54 Resp 20 03/20/18 08:49 BP 151/82 H 03/20/18 09:54 Pulse Ox 98 03/20/18 08:49 - Labs Result Diagrams: 03/19/18 06:00 03/19/18 06:00 Assessment & Plan - Assessment and Plan (Free Text) Plan: Assessment left ear otitis media, clinically improving vertigo - as per Neurology, it is positional questionable pneumocephalus on initial CT head, etiology and significance undetermined - CXR, CT chest did not show pneumothorax or pneumomediastinum Plan since she was able to tolerate Ciprofloxacin, we can continue her on Cipro PO 500 mg BID for another 5-7 days - noted QTc on EKG which is normal - discussed with patient that she was to eat well while on Cipro since rarely, it may cause hypoglycemia - patient understands and acknowledges as discussed with patient the Levaquin reaction may have been associated with the IV infusion - discussed with patient that if she develops any reaction to Cipro, she should contact her PMD and go to the ER as soon as possible - patient understands and acknowledges discussed this with the nurse in charge of the patient
--- NOTE | 2018-03-20 17:14 | CP.PCM.PCO ---
Addendum Addendum: Crow ONEILL paged regarding patient wanting to sign out AMA. Patient states that she spoke with her PMD and has an appointment set up for tomorrow. She states that she is feeling better and is no longer dizzy, or having nausea/vomiting. The patient states that Dr. Lilly discussed with her PMD regarding her condition. Benefits/risks of signing out AMA were explained to the patient with her present. Patient signed form. Nurse witnessed.
--- NOTE | 2018-03-20 17:33 | PN ---
DATE: 03/20/2018 REASON FOR CONSULTATION FOLLOWUP: Vertigo and dizziness, improved now. SUBJECTIVE: The patient denies any chest pain, shortness of breath or any palpitation. Denies any vertigo or dizziness. OBJECTIVE: GENERAL: Not in apparent distress, sitting in the chair, wanted to go home. The patient was scheduled for echo by Dr. Serrano. The patient was called for echo, the patient refused to go for echo. VITAL SIGNS: Temperature afebrile, heart rate 70 and blood pressure 150/82. HEENT: PERRLA. Extraocular muscles are intact. NECK: Supple. No carotid bruit or thyromegaly. CHEST: Clear to auscultation. HEART: S1, S2 regular. ABDOMEN: Soft. EXTREMITIES: Clubbing and cyanosis negative. LABORATORY DATA: Blood workup as follows; WBC 8.6, hemoglobin 12.8, hematocrit 38.9 and platelet count 220,000. Chemistry shows sodium 141, potassium 3.8, chloride 109, carbon dioxide 25, anion gap of 11, BUN 15 and creatinine 0.7. TSH 0.3. HDL 67, LDL 117, triglycerides 181 and cholesterol 196. Hemoglobin A1c is 6.4. IMPRESSION AND PLAN: A 57-year-old female with past medical history of diabetes, hypertension, and hyperlipidemia, admitted with vertigo. So far, no evidence of acute myocardial infarction. The patient has been scheduled for echo today, ordered by Dr. Serrano, but the patient refused to come for echo. For risk stratification, a stress test has been ordered as outpatient, though the patient claimed that she had an echo and a stress test done at [facility] within a year. We will schedule echo also as outpatient, though the patient refused echo today. We will schedule a stress test as outpatient. has been given to Cardiology in order to schedule a test as outpatient in 1-2 weeks. For risk of stratification, in interim continue baby aspirin, continue atorvastatin, continue lisinopril and continue Neuro and Pulmonary followup. The patient is cleared from Cardiology point of view to be discharged, though the patient refused echo. We will schedule a stress test as outpatient. Eduardo Cai MD
[2018-03-20 18:42] VITALS: PULSE 60; RESP 19; TEMP 99.1; O2SAT 95
--- NOTE | 2018-03-21 00:41 | PN ---
DATE: 03/20/2018 PULMONARY PROGRESS NOTE REFERRING PHYSICIAN: Yamini Lopes MD SUBJECTIVE: She is sitting side of the bed, feels better, no more dizzy spell. No headache, no rhinitis. Admit to have snoring. No nausea, vomiting, diarrhea. No leg pain or leg swelling. OBJECTIVE: GENERAL: In no acute distress. VITAL SIGNS: Temperature 99, heart rate 60, respiratory rate is 18, blood pressure 151/82, pulse ox 95% on room air. HEENT: Moist mucous membranes. Crowded airway. NECK: Supple. No JVD. LUNGS: Have fair airflow with rhonchi. HEART: S1, S2. ABDOMEN: Soft, nontender. No organomegaly. EXTREMITIES: There is no edema. NEUROLOGIC: Awake, alert. Follows simple commands. MEDICATIONS: Reviewed and no new medication started since yesterday. LABORATORY DATA: Shows no new lab from yesterday. Microbiology, blood culture, there is no growth in 24 hours. IMPRESSION AND PLAN: Status post ear infection with pneumocephalus, subcutaneous emphysema, may have component of sleep apnea syndrome, hypertension. Diagnostic workup tomorrow to show there is some chronic disease. Spoke to the patient. Also spoke on the telephone with the patient's PMD in detail on the request of patient, need sleep study upon discharge as outpatient, PFT as outpatient, need to follow closely. Still have no idea why she had pneumocephalus as well as subcutaneous emphysema. Pulmonary status stable to discharge. Thank you, and we will follow. Eduardo Lilly MD
--- NOTE | 2018-03-22 08:15 | DS ---
The patient is a 57 years old female. The patient was seen and examined at the bedside on 03/20/2018. The patient signed against medical advice. CHIEF COMPLAINT: Dizziness. HISTORY OF PRESENT ILLNESS: Ms. Alejandro Adler is a 57 years old female with nonsignificant past medical history, came complaining of headache and dizziness. The patient described this dizziness as spinning room. Actually, she was seen by her primary care physician, for me this is a service case and got ciprofloxacin while using at home and never completed that. The patient noticed that she is vomiting from times earlier on the day of admission, and denies fever or chills. Having headache and dizziness. We had visited the patient, called consult with neurologist, ENT, starting gate driver, Infectious Disease. The patient was seen by all consultants. IV antibiotics were given. We did the CAT scan of the head, chest x-ray, neck and chest CT, soft tissue neck; MRI of the brain. Discussion was done with Dr. Lilly and Dr. Alvarado, ENT. Antibiotics started. The patient felt better. Plan was to follow up with IV antibiotics. The patient decided to go home against medical advice. Urged to complete the treatment, but she spoke to her own primary care physician and made some plan with her own primary care physician and left against medical advice. PAST MEDICAL HISTORY: Nonsignificant. FAMILY HISTORY: Father and mother, noncontributory. ALLERGIES: THE PATIENT IS ALLERGIC WITH PENICILLIN. REVIEW OF SYSTEMS: The patient was seen and examined at the bedside, looking comfortable. Dizziness is little bit better. Wants to go home, Explained that she has to take antibiotics cleared by the ENT and Neurology, but she decided to go against medical advice. No swelling of the legs. PHYSICAL EXAMINATION: VITAL SIGNS: Temperature 99, heart rate 60, respiratory rate 18, blood pressure 150/80,and pulse oximetry 95% on room air. HEENT: Head normocephalic and atraumatic. Eyes PERRLA. Extraocular muscles are intact. Conjunctivae clear. Nose patent. Mucous membranes moist. NECK: Supple. No carotid bruit. No JVD or thyromegaly. CHEST: Bilaterally symmetrical. HEART: S1 and S2 positive. LUNGS: Clear to auscultation. ABDOMEN: Soft. Bowel sounds present. No organomegaly. EXTREMITIES: No edema. No cyanosis. NEUROLOGIC: The patient is awake and alert. Moving all 4 extremities. No focal deficits. LABORATORY DATA: We do not recent labs on 03/20/2018, but I reviewed old labs. White blood cells on admission was 14.1; repeat is 8.6, hemoglobin 12.8, hematocrit 38.9, platelets 220. Sodium 141, potassium 3.8, BUN 15, creatinine 0.7, glucose 137, iron saturation 13. ASSESSMENT AND PLAN: Ms. Alejandro Adler is a 57 years old lady with leukocytosis; improved, hyperchloremia, hyperglycemia, iron deficiency, came with dizziness and vomiting CAT scans and MRIs reviewed by me. Seen by neurologist, ENT, and starting gate driver. Status post ear infection with pneumocephalus, subcutaneous emphysema, may have component of sleep apnea syndrome, hypertension. Diagnostic workup was in the process. Length of time discussion done with the patient multiple times. Dr. Lilly spoke to the patient's family care physician on the telephone. Details were given to her primary care physician by Dr. Lilly, needs a sleep study on discharge and PFT as an outpatient. Still has no idea why she has pneumocephalus as well as subcutaneous emphysema. Plan was still to continue antibiotics because the patient was improving. Seen by Infectious Disease, Dr. Trav Kyle, Dr. Lima, neurologist; Dr. Alvarado, ENT. The patient has left ear otitis media, clinically improving; vertigo, improving. The patient needs ENT followup also and primary care physician, the patient understands. She is oriented x3. She decided against medical advice. Yamini Lopes MD
== END 2018-03-20 18:53 | disposition left against medical advice (07) | DRG 149 ==
LOC: ED 21:59 → ERH 03-18 05:53 → 3RSO 03-18 07:32
PROVIDERS: ADMIT Internal Medicine; ATTEND Internal Medicine
DX: R42 Dizziness and giddiness (principal); T79.7XXA Traumatic subcutaneous emphysema, initial encounter; G93.89 Other specified disorders of brain; E11.65 Type 2 diabetes mellitus with hyperglycemia; E78.00 Pure hypercholesterolemia, unspecified; E78.1 Pure hyperglyceridemia; E78.5 Hyperlipidemia, unspecified; H66.92 Otitis media, unspecified, left ear; I10 Essential (primary) hypertension; D72.829 Elevated white blood cell count, unspecified; K21.9 Gastro-esophageal reflux disease without esophagitis; Z98.51 Tubal ligation status; Z88.0 Allergy status to penicillin; R00.1 Bradycardia, unspecified; E61.1 Iron deficiency